=== PATIENT | female | born 1995 | race Caucasian/White ===

== ENCOUNTER 2019-01-04 08:49 | Emergency (ER) | payer BC, OTHER ==
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
[2019-01-04 09:55] VITALS: BP 111/70
== END 2019-01-04 09:40 | disposition home or self-care (01) ==
DX: S16.1XXA Strain of muscle, fascia and tendon at neck level, initial encounter (principal); V49.9XXA Car occupant (driver) (passenger) injured in unspecified traffic accident, initial encounter; Y92.9 Unspecified place or not applicable; Y99.9 Unspecified external cause status; Y93.9 Activity, unspecified

== ENCOUNTER 2019-01-23 21:02 | Emergency (ER) | payer BC, OTHER ==
--- NOTE | 2019-01-23 21:32 | EDPHY ---
H & P Time Seen by Provider: 01/23/19 21:16 HPI/ROS: CHIEF COMPLAINT: Laceration to face HISTORY OF PRESENT ILLNESS: 23-year-old female with up-to-date tetanus complaining of facial laceration. She sustained a mechanical fall falling forward on her face impacting the ground sustaining abrasion to the forehead as well as laceration to the right zygomatic arch region. Denies underlying osseous discomfort. Denies loss of consciousness. Denies nausea or vomiting. Denies midline C-spine pain or peripheral paresthesia, weakness, numbness. Denies visual acuity changes or diplopia or abnormal gaze. Tetanus is up-to- date. PRIMARY CARE PROVIDER: REVIEW OF SYSTEMS: 10 systems reviewed and negative with the exception of the elements mentioned in the history of present illness PAST MEDICAL/SURGICAL HISTORY: no anticoagulant use, no relevant medical/ surgical history SOCIAL HISTORY: denies alcohol use at time of incident PHYSICAL EXAM 1) GENERAL: Well-developed, well-nourished, alert and oriented. Appears to be in no acute distress. Answering questions appropriately. 2) HEAD: Normocephalic, right frontal abrasion c 3) HEENT: Pupils equal, round, reactive to light bilaterally. 4 cm flap laceration inferior to the right eye which is not involve the lid margin, does appear to involve the orbiculari oculi muscle. Negative Horners. Nasopharynx, oropharynx, clear. No deformity or angulation of nose. No septal hematoma. No rhinorrhea. No oral trauma. Extraocular movements are intact and do not elicit abnormal gaze or diplopia. No proptosis. No facial osseous pain. Ears bilaterally with normal tympanic membranes. No hemotympanum. No fluid or blood in the external auditory canal. No raccoon eyes. No Landaverde sign. Teeth are normally aligned with no gross malocclusion, TMJ bilaterally nontender, facial bones nontender including the zygomatic arch, maxilla mandible. 4) NECK: No cervical collar is on. Posterior cervical spine is nontender, no stepoff, no effusion. Full range of motion which does not elicit any midline cervical spine pain, no posterior midline tenderness, no step-off. 5) LUNGS: Clear to auscultation bilaterally, no wheezes, no rhonchi, no retractions. No obvious signs of trauma. No chest wall pain. No flaring, no grunting. Moving symmetrically. No crepitus. 6) HEART: [Regular rate and rhythm, 7) ABDOMEN: No guarding, no rebound, no focal tenderness, no peritoneal signs, no signs of trauma, no ecchymosis 8) MUSCULOSKELETAL: Moving all extremities, no focal areas of tenderness, no obvious trauma. 9) BACK: No midline vertebral tenderness, no fluctuance, no step-off, no obvious trauma, no visual or palpable abnormality. 10) SKIN: facial laceration DIFFERENTIAL DIAGNOSIS: Not necessarily in any particular order, my differential diagnosis includes, but is not limited to, concussion, skull fracture, intraparenchymal contusion, subarachnoid, subdural and epidural hematoma. The patient understands that this diagnosis is provisional and can never be 100% accurate. Smoking Status: Never smoked Constitutional: Initial Vital Signs Temperature (C) 36.6 C 01/23/19 21:06 Heart Rate 100 01/23/19 21:06 Respiratory Rate 16 01/23/19 21:06 Blood Pressure 116/87 H 01/23/19 21:06 O2 Sat (%) 96 01/23/19 21:06 O2 Delivery Mode Room Air Allergies/Adverse Reactions: No Known Allergies Allergy (Verified 01/23/19 21:06) Home Medications: Medication Instructions Recorded HARSH 01/04/19 MDM/Departure - MDM Medications Given: Discontinued Medications Hydrocodone Bitart/Acetaminophen ([place] 5/325mg Prepack#6) 1 btl TAKEHOME EDNOW ONE Stop: 01/23/19 22:43 Last Admin: 01/23/19 22:45 Dose: 1 btl ED Course/Re-evaluation: 9:30 p.m.: Due to the patient's laceration and a cosmetic location, involvement of the orbicularis oculi muscle, have spoken with on-call Plastic surgery Dr. Ashutosh Howe who agrees to come to the ER to evaluate patient Patient's wound was closed by plastic surgery emergency department will follow- up with Plastic surgery for suture removal. Regarding the patient's head injury and facial injury, doubt intracranial hemorrhage, skull fracture, facial bone fracture. Do not think that the benefits of CT imaging outweigh the risks at this time. I explained this to the patient and she is in agreement. Plan will be discharged with my usual and customary head injury precautions and instructions - Depart Disposition: Home, Routine, Self-Care Clinical Impression: Laceration of face Qualifiers: Encounter type: initial encounter Qualified Code(s): S01.81XA - Laceration without foreign body of other part of head, initial encounter Condition: Good Instructions: Hydrocodone/Acetaminophen (By mouth), Care For Your Stitches (ED) , Laceration (ED) Additional Instructions: ALTHOUGH THERE IS NO EVIDENCE OF SERIOUS HEAD INJURY AT THIS TIME, DELAYED SIGNS CAN APPEAR 24 TO 48 HOURS AFTER INJURY. PLEASE RETURN TO THE EMERGENCY DEPARTMENT (ED) IMMEDIATELY IF YOU HAVE INCREASED HEADACHE, PERSISTENT HEADACHE , VOMITING, WEAKNESS, CONFUSION OR VISUAL PROBLEMS. WE RECOMMEND THAT YOU DO NOT RESUME CONTACT SPORTS OR ACTIVITIES THAT TAKE COORDINATION OR BALANCE SUCH SKIING OR RIDING A BICYCLE UNTIL CLEARED TO DO SO BY YOUR DOCTOR OR BY A NEUROLOGIST. Referrals: Ashutosh Howe MD [Medical Doctor] - 01/28/19
[2019-01-23] MEDS ORDERED: HYDROCOD/APAP 5/325 PREPACK#6 BTL TAKEHOME ONE (22:42)
[2019-01-23 22:54] VITALS: BP 110/80
--- NOTE | 2019-01-24 00:42 | GCON ---
[f rep st] CONSULTATION EMERGENCY ROOM CONSULTATION DATE OF CONSULTATION: 01/23/2019 CHIEF COMPLAINT: Laceration, right lower eyelid. HISTORY OF PRESENTING COMPLAINT: The patient is a 23-year-old female who fell onto a sidewalk today and sustained abrasions and lacerations to the right side of her face. There was no loss of consciousness. Past medical history is generally unremarkable. She has no known allergies. Her only medication is Vyvanse, and tetanus status is believed to be up to date. PHYSICAL EXAMINATION: On examination, she has abrasions above and below her right orbital region, and this is full thickness into the lateral right lower lid area where there is a gaping laceration with raw abrasion on either side of it and some nonviable tissue on the lower aspect of it. The depth is down into the orbicularis muscle but does not appear to be deeper than that. Wound had been cleaned prior to my arrival. Treatment rendered. Wound had been cleaned as I already mentioned, but some sensation returned, so I infiltrated with further lidocaine with epinephrine. Closure was done in layers with 6-0 Vicryl to the deep layers and 6-0 Prolene to the skin. Debridement was done conservatively of nonviable tissue that was present. Total length of the laceration was 4 cm. DISCHARGE PLAN/FOLLOWUP: Wound was dressed with bacitracin ointment. Instructions were given on wound care. I will plan to see her in my office in 4 to 5 days' time. /[id number]/MODL MTDD
== END 2019-01-23 22:54 | disposition home or self-care (01) ==
PROC: 0HQ1XZZ Repair Face Skin, External Approach (ICD-10-PCS; principal; 2019-01-23)
DX: S01.81XA Laceration without foreign body of other part of head, initial encounter (principal); W01.198A Fall on same level from slipping, tripping and stumbling with subsequent striking against other object, initial encounter; Y92.9 Unspecified place or not applicable; Y93.9 Activity, unspecified; Y99.9 Unspecified external cause status